=== PATIENT | male | born 1970 | race Caucasian/White ===

== ENCOUNTER 2019-02-12 07:32 | Outpatient (CLI) | payer OTHER, SELFPAY ==
[2019-02-12 08:06] LABS: Hematocrit 40.1 % (42.0-52.0); Hemoglobin 13.8 g/dL (14.0-18.0); Mean Corpuscular HGB Conc 34.4 g/dl (32-36); Mean Corpuscular Hemoglobin 29.1 pg (26-34); Mean Corpuscular Volume 84.4 fl (80-100); Mean Platelet Volume 9.4 fl (7.4-10.4); Platelet Count Result 236 k/mm3 (150-375); Red Blood Count 4.75 M/mm3 (4.6-6.20); Red Cell Distribution Width 12.5 % (11.5-14.5); White Blood Count 7.2 K/mm3 (4.5-10.0)
[2019-02-12 08:23] LABS: Alanine Aminotransferase 39 U/L (4-50); Albumin Level 4.4 g/dL (3.5-5.1); Alkaline Phosphatase 84 U/L (38-126); Aspartate Amino Transferase 30 U/L (17-59); Bilirubin,Total 0.4 mg/dL (0.2-1.3); Blood Urea Nitrogen 20 mg/dL (9-20); Calcium 9.3 mg/dL (8.4-10.2); Carbon Dioxide 26 mmol/L (22-30); Chloride 101 mmol/L (98-107); Cholesterol 221 mg/dL (0-200); Estimated Glomerular Filt Rate > 60; Glucose 119 mg/dL (75-110); HDL Direct 33 mg/dL; Potassium 4.9 mmol/L (3.4-5.0); Sodium 137 mmol/L (137-145); Triglycerides 292 mg/dL (<150)
[2019-02-12 08:34] LABS: LDL Cholesterol Direct 121 mg/dL
[2019-02-12 08:49] LABS: Prostate Specific Antigen 1.6 ng/mL (< OR = 4.0)
== END 2019-02-12 07:33 | disposition home or self-care (01) ==
LOC: ANHLAB 07:34
PROVIDERS: PCP Internal Medicine; Visit Provider Nurse Practitioner
DX: D72.829 Elevated white blood cell count, unspecified (principal); E29.1 Testicular hypofunction; E78.5 Hyperlipidemia, unspecified
CPT/HCPCS: 36415; 80053; 80061; 84153; 85027

== ENCOUNTER 2019-03-22 00:27 | Day surgery (SDC) | payer OTHER, SELFPAY ==
[2019-03-17 08:40] VITALS: BMI 33.8
[2019-03-22 10:04] VITALS: BP 128/94; PULSE 77; RESP 16; TEMP 36.3; O2SAT 97
[2019-03-22] MEDS: LACTATED RINGERS 1,000 ML 150 ML IV CONT (10:14)
--- NOTE | 2019-03-22 10:29 | WPDANESEPPF ---
Anes - Initial Pre Proc Eval Procedure: Operation Date: 03/22/19 11:15 Proposed Procedures p Screening Colonoscopy - Gerry Roth MD Date/Time: 03/22/19 10:29 Surgeon: Gerry Roth MD Pre Op Diagnosis: Neoplasm Screening Patient Data Age: 48 Gender: M Height: 5 ft 8 in Weight: 102.1 kg Last Vital Signs Temp 97.3 F L 03/22/19 10:04 Pulse 77 03/22/19 10:04 Resp 16 03/22/19 10:04 BP 128/94 H 03/22/19 10:04 Pulse Ox 97 03/22/19 10:04 Allergies Allergy/AdvReac Type Severity Reaction Status Date / Time iodine Allergy Intermediate HIVES Verified 03/22/19 10:03 gadobenic acid Allergy Hives Verified 03/22/19 10:03 [From contrast - MRI] iohexol Allergy Hives Verified 03/22/19 10:03 [From contrast - CT, X-RAY] Home Medications Medication Instructions Recorded Confirmed Type nabumetone 500 mg tablet 500 mg PO BID #30 tablet 01/18/19 03/22/19 Rx omeprazole 20 mg capsule,delayed 20 mg PO DAILY #30 cap 01/18/19 03/22/19 Rx release sertraline 100 mg tablet 100 mg PO DAILY 01/18/19 03/22/19 History simvastatin 40 mg tablet 40 mg PO DAILY #90 tablet 02/18/19 03/22/19 Rx Patient hx anesthesia problems: none Family hx anesthesia problems: none PMFSH Past Medical History Medical History (Updated 03/22/19 @ 10:29 by Yony House MD) Anxiety Arthritis of finger of left hand Depression with anxiety Hypogonadism in male MAGUI (obstructive sleep apnea) Tooth abscess Surgical History Surgical History History of facial surgery History of surgery on arm right arm surgery from laceration Family History Family History (Updated 02/18/19 @ 08:28 by Brenda Carey CMA) Father Cancer Other Heart disease Social History Social History (Updated 02/18/19 @ 08:29 by Brenda Carey CMA) Smoking status: Former smoker Smoking end date: 02/10/16 Alcohol intake: current Anes - Eval Final PreProcedure Day of Procedure 03/22/19 10:29 Patient weight: obese Heart: regular rate and rhythm Lungs: clear to auscultation Airway: Mallampati scale class II Neurological: alert and oriented Last oral intake: >/= 8 hours ASA classification: III Emergent: no Anesthetic plan: proceed Anesthesia type and monitoring: general GIVS and standard monitoring Informed Consent: The patient's anesthetic plan and its attendant risks and benefits were discussed with the patient/family/POA. Questions were solicited and answers provided to the satisfaction of the patient/family/POA.
--- NOTE | 2019-03-22 11:06 | PM.HPGS ---
History of Present Illness History of Present Illness Consent: Risks, benefits, and alternatives have been discussed and questions answered. Patient agrees to proceed with procedure. Chief complaint: Neoplasm Screening Narrative: Yair Samuel Jr. is a 48 year old male here for screening colonoscopy, never had one. Review of Systems Constitutional: Constitutional: Denies headache(s) and Denies weakness Eyes: Eyes: Denies blurry vision ENT: Reports Normal hearing present, Denies headache(s) and Denies neck pain Cardiovascular: Cardiovascular: Denies chest pain and Denies dyspnea Respiratory: Respiratory: Denies dyspnea Gastrointestinal: Gastrointestinal: Reports no additional gastrointestinal complaints Genitourinary: Genitourinary: Denies dysuria Musculoskeletal: Musculoskeletal: Denies neck pain Integumentary/Breasts: Skin/Breast: Denies dry skin Neurologic: Reports Normal hearing present, Denies headache(s) and Denies weakness Psychiatric: Psychiatric: Denies anxiety Endocrine: Endocrine: Denies change in body appearance Hematologic/Lymphatic: Hematologic/Lymphatic: Denies easy bleeding Allergic/Immunologic: Allergic/Immunologic: Denies urticaria PMFSH Past Medical History Medical History (Updated 03/22/19 @ 10:29 by Yony House MD) Anxiety Arthritis of finger of left hand Depression with anxiety Hypogonadism in male MAGUI (obstructive sleep apnea) Tooth abscess Surgical History Surgical History History of facial surgery History of surgery on arm right arm surgery from laceration Family History Family History (Updated 02/18/19 @ 08:28 by Brenda Carey CMA) Father Cancer Other Heart disease Social History Social History (Updated 02/18/19 @ 08:29 by Brenda Carey BOAT DISPATCHER) Smoking status: Former smoker Smoking end date: 02/10/16 Alcohol intake: current Meds Home Medications and Allergies Home Medications Medication Instructions Recorded Confirmed Type nabumetone 500 mg tablet 500 mg PO BID #30 tablet 01/18/19 03/22/19 Rx omeprazole 20 mg capsule,delayed 20 mg PO DAILY #30 cap 01/18/19 03/22/19 Rx release sertraline 100 mg tablet 100 mg PO DAILY 01/18/19 03/22/19 History simvastatin 40 mg tablet 40 mg PO DAILY #90 tablet 02/18/19 03/22/19 Rx Allergies Allergy/AdvReac Type Severity Reaction Status Date / Time iodine Allergy Intermediate HIVES Verified 03/22/19 10:03 gadobenic acid Allergy Hives Verified 03/22/19 10:03 [From contrast - MRI] iohexol Allergy Hives Verified 03/22/19 10:03 [From contrast - CT, X-RAY] Vital Signs Vital Signs - 24 hr 03/22/19 10:04 Temperature 97.3 F L Pulse Rate 77 Respiratory Rate 16 Blood Pressure 128/94 H Pulse Oximetry 97 Exam Const: General: comfortable and no acute distress HENMT: General nose exam: Normal nares present Eyes: General: appearance normal, both eyes and all related structures Neck: Neck: no JVD Resp: Auscultation: clear to auscultation bilaterally Cardio: Rate: regular rate Rhythm: regular rhythm GI: Inspection: non-distended GI Palp: Yes Soft to palpation Skin: General skin exam: normal color Neuro: General: gait normal Speech: normal speech Extrem: General: normal to inspection Psych: Mental Status: mental status grossly normal Assessment and Plan Assessment and plan (1) Screening for colon cancer: Code(s): Z12.11 - Encounter for screening for malignant neoplasm of colon Status: Acute Assessment and Plan: will proceed with colonoscopy (2) Hyperlipidemia: Qualifiers: Hyperlipidemia type: unspecified Qualified Code(s): E78.5 - Hyperlipidemia, unspecified Code(s): E78.5 - Hyperlipidemia, unspecified Status: Acute
[2019-03-22 11:27] VITALS: BP 117/66; PULSE 68; RESP 13; O2SAT 98
[2019-03-22 11:37] VITALS: BP 120/70; PULSE 64; RESP 12; O2SAT 98
[2019-03-22 11:47] VITALS: BP 112/70; PULSE 66; RESP 16; O2SAT 98
== END 2019-03-22 12:01 | disposition home or self-care (01) ==
PROVIDERS: PCP Internal Medicine; Visit Provider Internal Medicine Gastroenterology
PROC: 0DJD8ZZ Inspection of Lower Intestinal Tract, Via Natural or Artificial Opening Endoscopic (ICD-10-PCS; CPT 45378; principal; 2019-03-22 11:15)
DX: Z12.11 Encounter for screening for malignant neoplasm of colon (principal); K63.5 Polyp of colon; K57.30 Diverticulosis of large intestine without perforation or abscess without bleeding; G47.33 Obstructive sleep apnea (adult) (pediatric); F41.8 Other specified anxiety disorders; Z87.891 Personal history of nicotine dependence; E66.9 Obesity, unspecified; Z68.34 Body mass index [BMI] 34.0-34.9, adult
CPT/HCPCS: 45385; 88305; J7120

== ENCOUNTER 2020-06-15 09:11 | Outpatient (CLI) | payer OTHER, SELFPAY ==
[2020-06-15 09:51] LABS: Basophils Absolute Auto 0.1 K/mm3 (0.0-0.1); Basophils Percent Auto 0.6 % (0.2-1.2); Eosinophils Absolute Auto 0.1 K/mm3 (0-0.3); Eosinophils Percent Auto 1.2 % (0-4.4); Hematocrit 41.2 % (42.0-52.0); Hemoglobin 14.4 g/dL (14.0-18.0); Immature Granulocyte Absolute 0.02 K/mm3 (0.00-0.031); Immature Granulocyte Percent A 0.2 % (0-0.5); Lymphocytes Absolute Auto 2.58 K/mm3 (0.9-3.2); Lymphocytes Percent Auto 31.3 % (18.3-44.2); Mean Corpuscular Hemoglobin 29.2 pg (26-34); Mean Corpuscular Volume 83.6 fl (80-100); Mean Platelet Volume 9.1 fl (7.4-10.4); Monocytes Absolute Auto 0.6 K/mm3 (0.1-0.6); Monocytes Percent Auto 6.8 % (2.6-8.5); Neutrophils Absolute Auto 4.9 K/mm3 (1.3-6.7); Neutrophils Percent Auto 59.9 % (45.5-73.1); Platelet Count Result 270 k/mm3 (150-375); Red Blood Count 4.93 M/mm3 (4.6-6.20); Red Cell Distribution Width 12.6 % (11.5-14.5); White Blood Count 8.3 K/mm3 (4.5-10.0)
[2020-06-15 09:58] LABS: Alanine Aminotransferase 29 U/L (4-50); Albumin Level 4.8 g/dL (3.5-5.1); Alkaline Phosphatase 89 U/L (38-126); Anion Gap 7 mmol/L (8-16); Aspartate Amino Transferase 32 U/L (17-59); Bilirubin,Total 0.3 mg/dL (0.2-1.3); Blood Urea Nitrogen 15 mg/dL (9-20); Calcium 9.7 mg/dL (8.4-10.2); Carbon Dioxide 26 mmol/L (22-30); Chloride 106 mmol/L (98-107); Cholesterol 221 mg/dL (0-200); Estimated Glomerular Filt Rate > 60; Glucose 112 mg/dL (75-110); HDL Direct 45 mg/dL; Potassium 4.9 mmol/L (3.4-5.0); Sodium 139 mmol/L (137-145); Triglycerides 371 mg/dL (<150)
[2020-06-15 09:59] LABS: Hemoglobin A1C 6.1 % (<5.7)
[2020-06-15 10:10] LABS: LDL Cholesterol Direct 109 mg/dL
[2020-06-15 10:29] LABS: Prostate Specific Antigen 1.8 ng/mL (< OR = 4.0)
== END 2020-06-15 09:12 | disposition home or self-care (01) ==
PROVIDERS: PCP Internal Medicine; Visit Provider Nurse Practitioner
DX: R73.03 Prediabetes (principal); E78.5 Hyperlipidemia, unspecified; Z12.5 Encounter for screening for malignant neoplasm of prostate
CPT/HCPCS: 36415; 80053; 80061; 83036; 84153; 85025; G0103

== ENCOUNTER 2021-07-06 09:26 | Outpatient (CLI) | payer OTHER, SELFPAY ==
[2021-07-06 10:03] LABS: Basophils Absolute Auto 0.1 K/mm3 (0.0-0.1); Basophils Percent Auto 0.6 % (0.2-1.2); Eosinophils Absolute Auto 0.1 K/mm3 (0-0.3); Eosinophils Percent Auto 1.4 % (0-4.4); Hematocrit 42.5 % (42.0-52.0); Hemoglobin 14.4 g/dL (14.0-18.0); Immature Granulocyte Absolute 0.01 K/mm3 (0.00-0.031); Immature Granulocyte Percent A 0.1 % (0-0.5); Lymphocytes Absolute Auto 2.78 K/mm3 (0.9-3.2); Lymphocytes Percent Auto 34.4 % (18.3-44.2); Mean Corpuscular HGB Conc 33.9 g/dl (32-36); Mean Corpuscular Hemoglobin 29.6 pg (26-34); Mean Corpuscular Volume 87.3 fl (80-100); Mean Platelet Volume 9.6 fl (7.4-10.4); Monocytes Absolute Auto 0.6 K/mm3 (0.1-0.6); Monocytes Percent Auto 7.7 % (2.6-8.5); Neutrophils Absolute Auto 4.5 K/mm3 (1.3-6.7); Neutrophils Percent Auto 55.8 % (45.5-73.1); Platelet Count Result 280 k/mm3 (150-375); Red Blood Count 4.87 M/mm3 (4.6-6.20); Red Cell Distribution Width 12.5 % (11.5-14.5); White Blood Count 8.1 K/mm3 (4.5-10.0)
[2021-07-06 10:16] LABS: Alanine Aminotransferase 37 U/L (6-50); Albumin Level 4.5 g/dL (3.5-5.1); Alkaline Phosphatase 79 U/L (38-126); Anion Gap 4 mmol/L (8-16); Aspartate Amino Transferase 32 U/L (17-59); Bilirubin,Total 0.4 mg/dL (0.2-1.3); Blood Urea Nitrogen 18 mg/dL (9-20); Calcium 8.6 mg/dL (8.4-10.2); Carbon Dioxide 27 mmol/L (22-30); Chloride 107 mmol/L (98-107); Cholesterol 189 mg/dL (0-200); Estimated Glomerular Filt Rate > 60; Glucose 102 mg/dL (65-110); HDL Direct 31 mg/dL; Potassium 4.4 mmol/L (3.4-5.0); Sodium 138 mmol/L (137-145); Triglycerides 178 mg/dL (<150)
[2021-07-06 10:19] LABS: Hemoglobin A1C 5.9 % (<5.7)
[2021-07-06 10:27] LABS: LDL Cholesterol Direct 107 mg/dL
[2021-07-06 10:46] LABS: Prostate Specific Antigen 1.8 ng/mL (< OR = 4.0)
== END 2021-07-06 09:27 | disposition home or self-care (01) ==
LOC: ANHLAB 09:27
PROVIDERS: PCP Internal Medicine; Visit Provider Internal Medicine
DX: Z13.228 Encounter for screening for other metabolic disorders (principal); R73.03 Prediabetes; E78.5 Hyperlipidemia, unspecified; Z12.5 Encounter for screening for malignant neoplasm of prostate
CPT/HCPCS: 36415; 80053; 80061; 83036; 84153; 85025; G0103

== ENCOUNTER 2021-08-25 08:28 | Emergency (ER) | payer OTHER, SELFPAY ==
[2021-08-25 10:04] VITALS: BP 142/90; PULSE 76; RESP 18; TEMP 36.4; O2SAT 98
[2021-08-25] MEDS: FLUORESCEIN SOD 1 MG/STRIP LEFT EYE (10:44)
[2021-08-25] MEDS: TETRACAINE HCL 0.5% OPHTH SOLN 4 ML BTL 1 DROP LEFT EYE (10:44)
--- NOTE | 2021-08-25 11:12 | PC.NURSE ---
Patient report given to MONE Michaels. All questions answered and care of patient transferred.
--- NOTE | 2021-08-25 11:40 | ED.GENADULT ---
HPI - General Adult General Chief complaint: Eye Problems Stated complaint: L eye injury Time Seen by Provider: 08/25/21 10:12 History of Present Illness HPI narrative: 50-year-old male presented emerged department for evaluation of an injury to his left eye. 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 Patient did have some bleeding from the sclera. Patient states he does have a slight blurring of his vision but denies any significant changes. Visual acuity was performed. Patient does use corrective eyewear. Patient states that his tetanus is up-to-date. Related Data Allergies Allergy/AdvReac Type Severity Reaction Status Date / Time iodine Allergy Intermediate HIVES Verified 08/20/21 08:00 gadobenic acid Allergy Hives Verified 08/20/21 08:00 [From contrast - MRI] iohexol Allergy Hives Verified 08/20/21 08:00 [From contrast - CT, X-RAY] Review of Systems Review of Systems: CONSTITUTIONAL: Denies fever, chills, or sweats. EYES: See HPI ENT: Denies rhinorrhea, congestion, sore throat, or otalgia. CARDIOVASCULAR: Denies chest pain, palpitations, or edema. RESPIRATORY: Denies cough or dyspnea. GASTROINTESTINAL: Denies abdominal pain, nausea, vomiting, or diarrhea. GENITOURINARY: Denies dysuria or hematuria. SKIN: Denies rash or itching. MUSCULOSKELETAL: Denies back pain, joint pain, or myalgia. NEUROLOGIC: Denies headache, numbness, or weakness. [facility] Past Medical History Medical History Anxiety Arthritis of finger of left hand Depression with anxiety Hypogonadism in male MAGUI (obstructive sleep apnea) Tooth abscess Surgical History Surgical History History of facial surgery History of surgery on arm right arm surgery from laceration Family History Family History Father Cancer Other Heart disease Sibling H/O stentless aortic valve replacement Social History Social History (Updated 08/20/21 @ 08:04 by Brenda Bradley CMA) Smoking status: Current every day smoker Tobacco type: cigarettes Alcohol intake: current Alcohol use details: Pt drinks occasionally. Substance use: current Substance use type: marijuana Exam Narrative: APPEARANCE: Well appearing, no pain, no distress, well-nourished. HEAD: normocephalic, atraumatic. EYES: Normal fundus exam. No intraocular bleeding. Some fluorescein uptake the left lateral cornea. No flowing fluorescein to raise concern of a globe injury NOSE: Normal no drainage EARS:TMS clear with good light reflex. THROAT: Pharynx clear, no exudate. NECK: Supple. No adenopathy, no masses. NEURO: Alert. Cranial nerves II through XII intact. Good gait. Good coordination SKIN: Warm, dry. Normal Color PSYCHIATRIC: Normal affect/mood. Course Course Emergency Course: Patient was treated with erythromycin ointment and encouraged to have close follow-up with ophthalmology. All questions concerns were addressed. Vital Signs Vital signs: Vital Signs Temperature 97.6 F 08/25/21 10:04 Pulse Rate 76 08/25/21 10:04 Respiratory Rate 18 08/25/21 10:04 Blood Pressure 142/90 H 08/25/21 10:04 Pulse Oximetry 98 08/25/21 10:04 Oxygen Delivery Room Air 08/25/21 10:04 Temperature 97.6 F 08/25/21 10:04 Pulse Rate 76 08/25/21 10:04 Respiratory Rate 18 08/25/21 10:04 Blood Pressure 142/90 H 08/25/21 10:04 Pulse Oximetry 98 08/25/21 10:04 Oxygen Delivery Room Air 08/25/21 10:04 Medical Decision Making Vital Signs Vital Signs: Vital Signs Temperature 97.6 F 08/25/21 10:04 Pulse Rate 76 08/25/21 10:04 Respiratory Rate 18 08/25/21 10:04 Blood Pressure 142/90 H 08/25/21 10:04 Pulse Oximetry 98 08/25/21 10:04 Oxygen Delivery Room Air 08/25/21 10:04 Temperature 97.6 F 08/25/21 10:04 Pulse R
[2021-08-25] MEDS: ERYTHROMYCIN OPHTH OINTMENT 1 GM TUBE 1 APPLIC LEFT EYE (11:56)
== END 2021-08-25 12:00 | disposition home or self-care (01) ==
PROVIDERS: Emergency Provider Emergency Medicine; PCP Internal Medicine
DX: S05.92XA Unspecified injury of left eye and orbit, initial encounter (principal); H11.32 Conjunctival hemorrhage, left eye; M19.042 Primary osteoarthritis, left hand; G47.33 Obstructive sleep apnea (adult) (pediatric); F17.210 Nicotine dependence, cigarettes, uncomplicated; W22.8XXA Striking against or struck by other objects, initial encounter
CPT/HCPCS: 99283; A9270

== ENCOUNTER 2021-09-20 07:56 | Outpatient (CLI) | payer OTHER, SELFPAY ==
[2021-09-20 19:32] LABS: Cholesterol 192 mg/dL (0-200); HDL Direct 33 mg/dL; Triglycerides 223 mg/dL (<150)
[2021-09-20 19:33] LABS: Hemoglobin A1C 5.6 % (<5.7)
[2021-09-20 19:43] LABS: LDL Cholesterol Direct 111 mg/dL
== END 2021-09-20 07:57 | disposition home or self-care (01) ==
LOC: ANHGOSHLAB 07:57
PROVIDERS: PCP Internal Medicine; Visit Provider Nurse Practitioner
DX: R73.03 Prediabetes (principal); E78.5 Hyperlipidemia, unspecified
CPT/HCPCS: 36415; 80061; 83036

== ENCOUNTER 2022-04-03 16:04 | Outpatient (CLI) | payer OTHER, SELFPAY ==
[2022-04-03 20:30] LABS: Basophils Absolute Auto 0.1 K/mm3 (0.0-0.1); Basophils Percent Auto 0.7 % (0.2-1.2); Eosinophils Absolute Auto 0.1 K/mm3 (0-0.3); Hematocrit 40.5 % (42.0-52.0); Immature Granulocyte Absolute 0.02 K/mm3 (0.00-0.031); Immature Granulocyte Percent A 0.2 % (0-0.5); Lymphocytes Absolute Auto 3.68 K/mm3 (0.9-3.2); Lymphocytes Percent Auto 35.9 % (18.3-44.2); Mean Corpuscular HGB Conc 34.6 g/dl (32-36); Mean Corpuscular Hemoglobin 29.7 pg (26-34); Mean Corpuscular Volume 85.8 fl (80-100); Mean Platelet Volume 9.5 fl (7.4-10.4); Monocytes Absolute Auto 0.8 K/mm3 (0.1-0.6); Monocytes Percent Auto 7.4 % (2.6-8.5); Neutrophils Absolute Auto 5.6 K/mm3 (1.3-6.7); Neutrophils Percent Auto 54.8 % (45.5-73.1); Platelet Count Result 275 k/mm3 (150-375); Red Blood Count 4.72 M/mm3 (4.6-6.20); Red Cell Distribution Width 12.4 % (11.5-14.5); White Blood Count 10.3 K/mm3 (4.5-10.0)
[2022-04-03 21:24] LABS: Alanine Aminotransferase 38 U/L (6-50); Albumin Level 4.6 g/dL (3.5-5.1); Alkaline Phosphatase 82 U/L (38-126); Anion Gap 8 mmol/L (8-16); Aspartate Amino Transferase 64 U/L (17-59); Bilirubin,Total 0.5 mg/dL (0.2-1.3); Blood Urea Nitrogen 15 mg/dL (9-20); Calcium 8.9 mg/dL (8.4-10.2); Carbon Dioxide 28 mmol/L (22-30); Chloride 104 mmol/L (98-107); Estimated Glomerular Filt Rate > 60; Glucose 85 mg/dL (65-110); Magnesium 2.1 mg/dL (1.6-2.3); Potassium 4.3 mmol/L (3.4-5.0); Sodium 140 mmol/L (137-145)
== END 2022-04-03 16:05 | disposition home or self-care (01) ==
LOC: ANHGOSHLAB 16:05
PROVIDERS: PCP Internal Medicine; Visit Provider Nurse Practitioner
DX: R56.9 Unspecified convulsions (principal)
CPT/HCPCS: 36415; 80053; 83735; 84443; 85025

== ENCOUNTER 2022-04-11 15:13 | Outpatient (CLI) | payer OTHER, SELFPAY ==
--- NOTE | ~2022-04-11 | MR_ITS ---
EXAMINATION: MR brain/brain stem wo con DATE: 04/11/2022 16:05 INDICATION: Seizure activity. TECHNIQUE: Magnetic resonance imaging (MRI) of the brain and brainstem was performed without intraven ous contrast. COMPARISON: Head CT 05/14/2007 FINDINGS: There is no intracranial hemorrhage, acute infarction, or abnormal intracranial mass lesion . There are areas of chronic encephalomalacia involving the frontal lobes bilaterally, left worse jem n right. There is no intracranial hemorrhage, acute infarction, or abnormal intracranial mass lesion. The ventricles are normal in size. The paranasal sinuses are clear. The orbits are normal. The masto id air cells are normal. IMPRESSION: 1. Chronic encephalomalacia involving the frontal lobes, left worse than right. Reviewed, dictated and finalized at location A. [facility] CUTTER
== END 2022-04-11 15:14 | disposition home or self-care (01) ==
PROVIDERS: PCP Internal Medicine; Visit Provider Nurse Practitioner
DX: R56.9 Unspecified convulsions (principal); G93.89 Other specified disorders of brain
CPT/HCPCS: 70551

== ENCOUNTER 2022-05-01 15:22 | Outpatient (CLI) | payer OTHER, SELFPAY ==
[2022-05-04 15:48] LABS: Levetiracetam Keppra <2.0 mcg/mL (6.0-46.0)
== END 2022-05-01 15:23 | disposition home or self-care (01) ==
LOC: ANHGOSHLAB 15:24
PROVIDERS: PCP Internal Medicine; Visit Provider Nurse Practitioner
DX: R56.9 Unspecified convulsions (principal)
CPT/HCPCS: 36415; 80177

== ENCOUNTER 2023-01-17 07:10 | Outpatient (CLI) | payer OTHER, SELFPAY ==
[2023-01-17 07:21] LABS: Basophils Absolute Auto 0.1 K/mm3 (0.0-0.1); Basophils Percent Auto 0.5 % (0.2-1.2); Eosinophils Absolute Auto 0.2 K/mm3 (0-0.3); Eosinophils Percent Auto 1.6 % (0-4.4); Immature Granulocyte Absolute 0.02 K/mm3 (0.00-0.031); Immature Granulocyte Percent A 0.2 % (0-0.5); Lymphocytes Absolute Auto 3.08 K/mm3 (0.9-3.2); Lymphocytes Percent Auto 28.9 % (18.3-44.2); Mean Corpuscular HGB Conc 34.1 g/dl (32-36); Mean Corpuscular Hemoglobin 29.5 pg (26-34); Mean Corpuscular Volume 86.5 fl (80-100); Mean Platelet Volume 8.8 fl (7.4-10.4); Monocytes Absolute Auto 0.6 K/mm3 (0.1-0.6); Monocytes Percent Auto 5.5 % (2.6-8.5); Neutrophils Absolute Auto 6.7 K/mm3 (1.3-6.7); Neutrophils Percent Auto 63.3 % (45.5-73.1); Platelet Count Result 248 k/mm3 (150-375); Red Blood Count 4.74 M/mm3 (4.6-6.20); Red Cell Distribution Width 12.8 % (11.5-14.5); White Blood Count 10.7 K/mm3 (4.5-10.0)
[2023-01-17 07:40] LABS: Alanine Aminotransferase 40 U/L (6-50); Albumin Level 4.4 g/dL (3.5-5.1); Alkaline Phosphatase 80 U/L (38-126); Anion Gap 8 mmol/L (8-16); Aspartate Amino Transferase 34 U/L (17-59); Bilirubin,Total 0.5 mg/dL (0.2-1.3); Blood Urea Nitrogen 16 mg/dL (9-20); Calcium 9.3 mg/dL (8.4-10.2); Carbon Dioxide 25 mmol/L (22-30); Chloride 107 mmol/L (98-107); Cholesterol 201 mg/dL (0-200); Estimated Glomerular Filt Rate > 60; Glucose 100 mg/dL (65-110); HDL Direct 36 mg/dL; Potassium 4.7 mmol/L (3.4-5.0); Sodium 140 mmol/L (137-145); Triglycerides 123 mg/dL (<150)
[2023-01-17 07:50] LABS: LDL Cholesterol Direct 124 mg/dL
[2023-01-17 12:49] LABS: Hemoglobin A1C 5.8 % (<5.7)
== END 2023-01-17 07:11 | disposition home or self-care (01) ==
LOC: ANHLAB 07:11
PROVIDERS: PCP Internal Medicine; Visit Provider Clinical Nurse Specialist
DX: R73.9 Hyperglycemia, unspecified (principal); Z13.228 Encounter for screening for other metabolic disorders; E78.5 Hyperlipidemia, unspecified; Z12.5 Encounter for screening for malignant neoplasm of prostate
CPT/HCPCS: 36415; 80053; 80061; 83036; 84153; 85025; G0103

== ENCOUNTER 2023-07-28 07:36 | Outpatient (CLI) | payer OTHER, SELFPAY ==
[2023-07-28 08:06] LABS: Basophils Absolute Auto 0.1 K/mm3 (0.0-0.1); Basophils Percent Auto 0.8 % (0.2-1.2); Eosinophils Absolute Auto 0.1 K/mm3 (0-0.3); Eosinophils Percent Auto 1.8 % (0-4.4); Hemoglobin 13.7 g/dL (14.0-18.0); Immature Granulocyte Absolute 0.02 K/mm3 (0.00-0.031); Immature Granulocyte Percent A 0.3 % (0-0.5); Lymphocytes Absolute Auto 2.23 K/mm3 (0.9-3.2); Lymphocytes Percent Auto 34.3 % (18.3-44.2); Mean Corpuscular HGB Conc 34.3 g/dl (32-36); Mean Corpuscular Hemoglobin 29.9 pg (26-34); Mean Corpuscular Volume 87.3 fl (80-100); Mean Platelet Volume 9.2 fl (7.4-10.4); Monocytes Absolute Auto 0.5 K/mm3 (0.1-0.6); Monocytes Percent Auto 8.2 % (2.6-8.5); Neutrophils Absolute Auto 3.6 K/mm3 (1.3-6.7); Neutrophils Percent Auto 54.6 % (45.5-73.1); Platelet Count Result 229 k/mm3 (150-375); Red Blood Count 4.58 M/mm3 (4.6-6.20); Red Cell Distribution Width 12.9 % (11.5-14.5); White Blood Count 6.5 K/mm3 (4.5-10.0)
[2023-07-28 08:21] LABS: Alanine Aminotransferase 43 U/L (6-50); Albumin Level 4.3 g/dL (3.5-5.1); Alkaline Phosphatase 75 U/L (38-126); Anion Gap 7 mmol/L (4-12); Aspartate Amino Transferase 41 U/L (17-59); Bilirubin,Total 0.5 mg/dL (0.2-1.3); Blood Urea Nitrogen 15 mg/dL (9-20); Calcium 8.9 mg/dL (8.4-10.2); Carbon Dioxide 26 mmol/L (22-30); Chloride 107 mmol/L (98-107); Cholesterol 282 mg/dL (0-200); Estimated Glomerular Filt Rate > 60; Glucose 126 mg/dL (65-110); HDL Direct 55 mg/dL; Potassium 4.3 mmol/L (3.4-5.0); Sodium 140 mmol/L (137-145); Triglycerides 280 mg/dL (<150)
[2023-07-28 08:33] LABS: LDL Cholesterol Direct 156 mg/dL
[2023-07-28 08:44] LABS: Hemoglobin A1C 5.9 % (<5.7)
[2023-07-28 08:50] LABS: Prostate Specific Antigen 2.9 ng/mL (< OR = 4.0)
== END 2023-07-28 07:37 | disposition home or self-care (01) ==
LOC: ANHLAB 07:37
PROVIDERS: PCP Internal Medicine; Visit Provider Nurse Practitioner
DX: R73.03 Prediabetes (principal); E78.5 Hyperlipidemia, unspecified; Z12.5 Encounter for screening for malignant neoplasm of prostate
CPT/HCPCS: 36415; 80053; 80061; 83036; 84153; 85025; G0103

== ENCOUNTER 2024-02-25 16:43 | Emergency (ER) | payer OTHER, SELFPAY ==
[2024-02-25 16:54] VITALS: BP 103/61; PULSE 86; RESP 16; TEMP 37.4; O2SAT 99
--- NOTE | 2024-02-25 17:00 | ED.URI ---
HPI - URI/Sore Throat General Chief Complaint: Ear Stated Complaint: EARACHE Time Seen by Provider: 02/25/24 16:53 Source: patient and RN notes reviewed Mode of arrival: ambulatory Limitations: no limitations History of Present Illness HPI Narrative: Patient presents today complaining of a 3-4 day history of cold symptoms to include slight cough, nasal congestion, headache, rhinorrhea. Reports right ear pain and muffling since this morning. Denies known fever. He has been taking Tylenol and ibuprofen with some mild relief. Related Data Allergies Allergy/AdvReac Type Severity Reaction Status Date / Time iodine Allergy Intermediate HIVES Verified 07/30/23 14:26 gadobenic acid (From Allergy Hives Verified 07/30/23 14:26 contrast - MRI) iohexol (From contrast - CT, Allergy Hives Verified 07/30/23 14:26 X-RAY) Review of Systems Review of Systems: CONSTITUTIONAL: Denies body aches, fever, chills, or sweats. EYES: Denies visual changes, redness, or discharge. ENT: Denies sore throat. + right ear pain, rhinorrhea, congestion CARDIOVASCULAR: Denies chest pain, palpitations, or edema. RESPIRATORY: Denies dyspnea.+ cough GASTROINTESTINAL: Denies abdominal pain, nausea, vomiting, or diarrhea. GENITOURINARY: Denies dysuria or hematuria. SKIN: Denies rash, itching, or wounds. MUSCULOSKELETAL: Denies back pain, joint pain, or myalgia. NEUROLOGIC: Denies numbness, tingling, or weakness.+ headache PSYCH: Denies depression or anxiety. [facility] Past Medical History Medical History Tobacco abuse Anxiety MAGUI (obstructive sleep apnea) Arthritis of finger of left hand Depression with anxiety Tooth abscess Hypogonadism in male Surgical History Surgical History History of surgery on arm right arm surgery from laceration History of facial surgery Family History Family History Father Cancer Other Heart disease Sibling H/O stentless aortic valve replacement Social History Social History Social History: caffeine-coffee Years smoked: 30 Smoking status: Current every day smoker Tobacco type: cigarettes Alcohol intake: current Alcohol use details: Pt drinks occasionally. Substance use: current Substance use type: marijuana Other substance usage details: rarely Lack of Transportation: No Lack of Food: Sometimes True Current Housing: I Have Housing Concerned About Future Housing: No Difficulty Paying Gas/Electric Bills: No Difficulty Paying for Meds: No Currently Unemployed: No Education: Bachelor's Degree Difficulty w/ Childcare or Family Care: No Comments Reviewed Exam Narrative: GENERAL: Well-appearing, well-nourished, and in no acute distress. HEAD: Normocephalic, atraumatic. EYES: EOMI. No redness or drainage. Conjunctivae normal. ENT: Mucous membranes pink and moist. Nares congested. No rhinorrhea. Left TM normal. Right TM erythematous and bulging. Bilateral ear canals are dry and flaking. Throat normal. Uvula midline. NECK: Normal AROM. Supple. No lymphadenopathy. CHEST: No respiratory distress. Clear to auscultation. HEART: Regular rate and rhythm. No murmur appreciated. EXTREMITIES: Normal range of motion. No edema. SKIN: Warm, dry, no rash. Capillary refill normal. Normal skin turgor. NEURO: No focal deficits. Alert and oriented x3. Gait steady. PSYCH: Normal affect. No signs of depression or anxiety. Course Course Level of Care: Express Care Visit Vital Signs Vital signs: Vital Signs Temperature 99.3 F 02/25/24 16:54 Pulse Rate 86 02/25/24 16:54 Respiratory Rate 16 02/25/24 16:54 Blood Pressure 103/61 02/25/24 16:54 Pulse Oximetry 99 02/25/24 16:54 Temperature 99.3 F 02/25/24 16:54 Pulse Rate 86 02/25/24 16:54 Respiratory Rate 16 02/25/24 16:54 Blood Pressure 103/61 02/25/24 16:54 Pulse Oximetry 99 02/25/24 16:54 Reviewed MDM - URI/Sore Throat MDM Narrative Medical decision making narrative: Patient will be treated with amoxicillin for right otitis media. Remainder of symptoms are likely viral in etiology. Discussed [id number] medication use and duration of illness. Anticipatory guidance given. Differential Diagnosis Differential diagnosis: Likely upper respiratory infection, otitis media and viral infection Critical Care Time Critical Care Time Critical Care Time: No Discharge Plan Discharge Clinical Impression: Acute right otitis media Upper respiratory infection Qualifiers: URI type: unspecified URI Qualified Code(s): J06.9 - Acute upper respiratory infection, unspecified Patient Disposition: Home, Self-Care Condition: Stable Instructions: Antibiotic Form, Ear Infection (ED), Upper Respiratory Infection (DC) Additional Instructions: Please take the amoxicillin for your ear infection. The remainder of your symptoms are likely due to a viral illness, which is not treated with antibiotics. Virus symptoms can last for up to 7-10days. Take Tylenol or ibuprofen for pain or fever. Rest and stay hydrated. Follow up with your PCP in days if your ear symptoms are not improving. Go to the ER immediately if you develop shortness of breath, difficulty swallowing, or any other concerning symptoms. Patient Language: Khmer Prescriptions: New amoxicillin 875 mg tablet 875 mg PO Q12H 7 Days Qty: 14 0RF No Action levetiracetam [Keppra] 500 mg tablet 750 mg PO Q12H 30 Days Qty: 90 1RF sertraline 100 mg tablet See Rx Instructions .ROUTE .COMPLEX Qty: 135 1RF Dose Instruction: TAKE 1 TABLET BY MOUTH EVERY DAY Rx Instructions: TAKE 1.5 TABLETS BY MOUTH EVERY DAY atorvastatin 40 mg tablet 40 mg PO QHS Qty: 90 1RF Zepbound 15 mg/0.5 mL pen injector 15 mg subcut WEEKLY Qty: 6 1RF Follow-up/Referrals: Jeff Pathak DO [Primary Care Provider] - Time of Disposition: 17:02
== END 2024-02-25 17:05 | disposition home or self-care (01) ==
PROVIDERS: Emergency Provider Nurse Practitioner; PCP Internal Medicine
DX: H66.91 Otitis media, unspecified, right ear (principal); J06.9 Acute upper respiratory infection, unspecified
CPT/HCPCS: 99213; G0463

== ENCOUNTER 2024-03-21 08:11 | Outpatient (CLI) | payer OTHER, SELFPAY ==
--- OUTSIDE RECORDS SUMMARY | 2024-03-21 08:17 | XMS_ITS | Clinical Summary ---
Author Organization [facility] Address [address] [place] [address] Care Team Providers Care Form Grader Operator Name Role Phone Unavailable Primary Care Provider Unavailabl e Source Comments [facility],non-owned Affiliates and Associated Physician Practices is amultiple site organization consisting of ambulatory clinics and hospital sitesin [place], [place], [place] and [place]. This disclosure is being madepursuant to the Care Everywhere program and may not contain all information available regarding this patient. Last updated 17.[facility] Immunizations Name Administration Dates Next Due TDAP (7yrs+) 08/20/2016 Social History Tobacco Use Types Packs/Day Years Used Date Smoking Tobacco: Never Assessed Sex and Gender Information Value Date Recorded Sex Assigned at Not on file Gender Identity Not on file Sexual Orientation Not on file Plan of Treatment Health Maintenance Due Date Last Done Comments COLOGUARD (AGES 45-75) - COL ON CA SCREENING 1968 COLON MONITORING 1968 COLONOSCOPY - COLON CA SCREENING 1968 CT COLONOGRAPHY - COLON CA SCREENING 1968 Colorectal Cancer Screening 1968 FIT - COLON CA SCREENING 1968 FLEX SIG - COLON CA SCREENING 1968 LIPID TESTING 1968 HIV SCREENING 10/15/1983 HEPATITIS C SCREENING 10/10/1986 HEPATITIS B VACCINE (1 of 3 - 19+ 3-dose series) 10/15/1987 PNEUMOCOCCAL VACCINE 50+ (1 of 1 - PCV) 2018 ZOSTER VACCINE (1 of 2) 2018 COVID-19 VACCINE (2023-2 5 season) 2023 INFLUENZA VACCINE (#1) 2023 DEPRESSION SCREENING 02/10/2024 DTAP/TDAP/TD VACCINES (2 - T d or Tdap) 08/20/2026 08/20/2016 HIB VACCINE Aged Out No longer eligi ble based on patient's age to complete this topic HPV VACCINE Aged Out No longer eligi ble based on patient's age to complete this topic MENINGOCOCCAL (Group B) VACCINE Aged Out No longer eligible based on patient's age to complete this topic MENINGOCOCCAL VACCINE Aged Out No melvin stacey eligible based on patient's age to complete this topic PNEUMOCOCCAL VACCINE Aged Out No long er eligible based on patient's age to complete this topic
--- OUTSIDE RECORDS SUMMARY | 2024-03-21 08:17 | XMS_ITS | Patient Health Summary ---
Author Organization [facility] Address [address] [place] [address] Care Team Providers Care Billing Manager Name Role Phone Unavailable Primary Care Provider Unavailabl e Note from [facility],non-owned Affiliates and Associated Physician Practices is amultiple site organization consisting of ambulatory clinics and hospital sitesin [place], [place], [place] and [place]. This disclosure is being madepursuant to the Care Everywhere program and may not contain all information available regarding this patient. Last updated 17.[facility] Immunizations * TDAP (7yrs+)(Given 08/20/2016) Social History Tobacco Use Types Packs/Day Years Used Date Smoking Tobacco: Never Assessed Sex and Gender Information Value Date Recorded Sex Assigned at Not on file Gender Identity Not on file Sexual Orientation Not on file
--- OUTSIDE RECORDS SUMMARY | 2024-03-21 08:17 | XMS_ITS | Clinical Summary ---
Author Organization [facility] Address [address] [place] [address] Care Team Providers Care Clinical Documentation Spec Name Role Phone Unavailable Primary Care Provider Unavailabl e Immunizations Name Administration Dates Next Due MODERNA COVID-19 (12+) MRNA, LNP-S, PF, 100 MCG/ 0.5 ML DOSE 04/12/2020,03/15/2020 Social History Tobacco Use Types Packs/Day Years Used Date Smoking Tobacco: Never Assessed Sex and Gender Information Value Date Recorded Sex Assigned at Not on file Legal Sex Male 7:42 PM CDT Gender Identity Not on file Sexual Orientation Not on file Plan of Treatment Health Maintenance Due Date Last Done Comments Colorectal Cancer Screening Colonoscopy (10 Years) 1968 Annual Physical 10/15/1971 Hepatitis C 1986 DTaP, Tdap and Td Vaccines ( 1 - Tdap) 10/15/1987 Hepatitis B Vaccines (1 of 3 - 19+ 3-dose series) 10/15/1987 Zoster Vaccines (1 of 2) 2018 COVID-19 Vaccine ( - 2023-2 5 season) 2023 04/12/2020, 03/15/2020 Influenza Adult (#1) 2023 Meningococcal Vaccine Aged Out 11/23/2015 No melvin stacey eligible based on patient's age to complete this topic Meningococcal B Vaccine Aged Out No l onger eligible based on patient's age to complete this topic Pneumococcal Vaccine: Pediatrics (0 to 5 Years) and At-Risk Patients (6 to 64 Years) Aged Out No longer eligible b ased on patient's age to complete this topic RSV Immunizations Under 20 Months Aged Out No longer eligible b ased on patient's age to complete this topic
--- OUTSIDE RECORDS SUMMARY | 2024-03-21 08:17 | XMS_ITS | Continuity of Care Document ---
Author Organization [facility] Address [address] [place] [address] Phone Care Team Providers Care Director Of Perioperative Services Name Role Phone Lr OD, Anthony Unavailable Unavailable Advance Directives Directive Yes / No Effective Date File Name No Information Encounters Encounter Description Practice Location Reason(s) For Visit Diagnoses Date Provider Providers Copied on Encounter [facility], [address], [place], [place], [id number], [place] tel:[phone] [facility] No Information [place]- 0-200 0 Lr OD Anthony. [address] , [address], [place], [address], [place]. tel:[phone] Family History Family Member Type Diagnosis Age At Onset No Information Payers Payer name Insurance type Covered democrat ID Authoriza tion(s) No Information Social History [...]
--- OUTSIDE RECORDS SUMMARY | 2024-03-21 08:17 | XMS_ITS | Referral Summary ---
Author Organization [facility] Address [address] [place] [address] Care Team Providers Care Office Clinician Name Role Phone Unavailable Primary Care Provider Unavailabl e Source Comments [facility],non-owned Affiliates and Associated Physician Practices is amultiple site organization consisting of ambulatory clinics and hospital sitesin [place], [place], [place] and [place]. This disclosure is being madepursuant to the Care Everywhere program and may not contain all information available regarding this patient. Last updated 17.[facility] [employer] Immunizations Name Administration Dates Next Due TDAP (7yrs+) 08/20/2016 Social History Tobacco Use Types Packs/Day Years Used Date Smoking Tobacco: Never Assessed Sex and Gender Information Value Date Recorded Sex Assigned at Not on file Gender Identity Not on file Sexual Orientation Not on file Plan of Treatment Not on file
[2024-03-21 13:01] LABS: Basophils Percent Auto 0.7 % (0.2-1.2); Eosinophils Absolute Auto 0.1 K/mm3 (0-0.3); Hematocrit 43.4 % (42.0-52.0); Hemoglobin 14.2 g/dL (14.0-18.0); Immature Granulocyte Absolute 0.01 K/mm3 (0.00-0.031); Immature Granulocyte Percent A 0.2 % (0-0.5); Lymphocytes Absolute Auto 1.89 K/mm3 (0.9-3.2); Lymphocytes Percent Auto 31.1 % (18.3-44.2); Mean Corpuscular HGB Conc 32.7 g/dl (32-36); Mean Corpuscular Hemoglobin 28.6 pg (26-34); Mean Corpuscular Volume 87.5 fl (80-100); Mean Platelet Volume 9.6 fl (7.4-10.4); Monocytes Absolute Auto 0.4 K/mm3 (0.1-0.6); Monocytes Percent Auto 6.8 % (2.6-8.5); Neutrophils Absolute Auto 3.7 K/mm3 (1.3-6.7); Neutrophils Percent Auto 60.2 % (45.5-73.1); Platelet Count Result 240 k/mm3 (150-375); Red Blood Count 4.96 M/mm3 (4.6-6.20); Red Cell Distribution Width 12.2 % (11.5-14.5); White Blood Count 6.1 K/mm3 (4.5-10.0)
[2024-03-21 14:54] LABS: Alanine Aminotransferase 20 U/L (6-50); Albumin Level 4.5 g/dL (3.5-5.1); Alkaline Phosphatase 85 U/L (38-126); Anion Gap 10 mmol/L (4-12); Aspartate Amino Transferase 41 U/L (17-59); Bilirubin,Total 0.5 mg/dL (0.2-1.3); Blood Urea Nitrogen 18 mg/dL (9-20); Calcium 9.5 mg/dL (8.4-10.2); Carbon Dioxide 27 mmol/L (22-30); Chloride 104 mmol/L (98-107); Cholesterol 214 mg/dL (0-200); Estimated Glomerular Filt Rate > 60; Glucose 74 mg/dL (65-110); HDL Direct 51 mg/dL; Sodium 141 mmol/L (137-145); Triglycerides 67 mg/dL (<150)
[2024-03-21 15:05] LABS: LDL Cholesterol Direct 134 mg/dL
[2024-03-21 15:56] LABS: Hemoglobin A1C 5.5 % (<5.7)
[2024-03-21 15:59] LABS: Folic Acid 9.6 ng/mL (2.76->20)
== END 2024-03-21 08:12 | disposition home or self-care (01) ==
LOC: ANHGOSHLAB 08:12
PROVIDERS: PCP Internal Medicine; Visit Provider Internal Medicine
DX: E78.5 Hyperlipidemia, unspecified (principal); R73.9 Hyperglycemia, unspecified; D64.9 Anemia, unspecified; E88.810 Metabolic syndrome; E66.09 Other obesity due to excess calories; Z68.31 Body mass index [BMI] 31.0-31.9, adult
CPT/HCPCS: 36415; 80053; 80061; 82172; 82607; 82728; 82746; 83036; 85025

== ENCOUNTER 2024-03-29 08:46 | Outpatient (CLI) | payer OTHER, SELFPAY ==
--- OUTSIDE RECORDS SUMMARY | 2024-03-29 08:50 | XMS_ITS | Clinical Summary ---
Author Organization [facility] Address [facility] [place] [address] Care Team Providers Care Space Officer Name Role Phone Unavailable Primary Care Provider [...]
--- OUTSIDE RECORDS SUMMARY | 2024-03-29 08:50 | XMS_ITS | Continuity of Care Document ---
Author Organization [facility] Address [address] [place] [address] Phone Care Team Providers Care Bleach Boiler Puller Name Role Phone Lr OD, Anthony Unavailable Unavailable Advance Directives Directive Yes / No Effective Date File Name No Information Encounters Encounter Description Practice Location Reason(s) For Visit Diagnoses Date Provider Providers Copied on Encounter [facility], [address], [place], [place], [id number], [place] tel:[phone] [facility] No Information [place]- [phone] Lr OD Anthony. [address] , [address], [place], [address], [place]. tel:[phone] Family History Family Member Type Diagnosis Age [...]
--- OUTSIDE RECORDS SUMMARY | 2024-03-29 08:50 | XMS_ITS | Clinical Summary ---
Author Organization [facility] [employer] Address [address] [place] [address] Care Team Providers Care Windshield Technician Name Role Phone Unavailable Primary Care Provider Unavailabl e Source Comments [facility] [employer],non-owned Affiliates and Associated Physician Practices is amultiple site organization consisting of ambulatory clinics and hospital sitesin [place], [place], [place] and [place]. This disclosure is being madepursuant to the Care Everywhere program and may not contain all information available regarding this patient. Last updated 17.[facility] [employer] Immunizations Name Administration Dates Next Due TDAP [...]
--- OUTSIDE RECORDS SUMMARY | 2024-03-29 08:50 | XMS_ITS | Patient Health Summary ---
Author Organization [facility] Address [address] [place] [address] Care Team Providers Care Tire Classifier Name Role Phone Unavailable Primary Care Provider Unavailabl e Note from [facility],non-owned Affiliates and Associated Physician Practices is amultiple site organization consisting of ambulatory clinics and hospital sitesin [place], [place], [place] and [place]. This disclosure is being madepursuant to the Care Everywhere program and may not contain all information available regarding this patient. Last updated 17.[facility] Immunizations * TDAP (7yrs+)(Given 08/20/2016) Social History Tobacco Use Types Packs/Day Years Used Date Smoking Tobacco: Never Assessed Sex and Gender Information Value Date Recorded Sex Assigned at Not on file Gender Identity Not on file Sexual Orientation Not on file
--- OUTSIDE RECORDS SUMMARY | 2024-03-29 08:50 | XMS_ITS | Referral Summary ---
Author Organization [facility] Address [address] [place] [address] Care Team Providers Care Human Service Specialist Name Role Phone Unavailable Primary Care Provider Unavailabl e Source Comments [facility],non-owned Affiliates and Associated Physician Practices is amultiple site organization consisting of ambulatory clinics and [place]in [place] and [place]. This disclosure is being madepursuant to the Care Everywhere program and may not contain all information available regarding this patient. Last updated 17.[facility] [employer] Immunizations Name Administration Dates Next Due TDAP (7yrs+) 08/20/2016 Social History Tobacco Use Types Packs/Day Years Used Date Smoking Tobacco: Never Assessed Sex and Gender Information Value Date Recorded Sex Assigned at Not on file Gender Identity Not on file Sexual Orientation Not on file Plan of Treatment Not on file
[2024-03-29 18:24] LABS: Free T3 3.55 pg/mL (2.71-6.16)
[2024-03-31 01:40] LABS: LH 2.9 mIU/mL (1.5-9.3)
== END 2024-03-29 08:47 | disposition home or self-care (01) ==
LOC: ANHGOSHLAB 08:46
PROVIDERS: PCP Internal Medicine; Visit Provider Internal Medicine
DX: R53.83 Other fatigue (principal); R68.82 Decreased libido; N52.9 Male erectile dysfunction, unspecified
CPT/HCPCS: 36415; 83002; 84402; 84403; 84481

== ENCOUNTER 2024-06-07 08:04 | Outpatient (CLI) | payer OTHER, SELFPAY ==
--- OUTSIDE RECORDS SUMMARY | 2024-06-07 08:12 | XMS_ITS | Clinical Summary ---
Author Organization [facility] Address [address] [place] [address] Care Team Providers Care Pepper Cutter Name Role Phone Unavailable Primary Care Provider Unavailabl e Source Comments [facility],non-owned Affiliates and Associated Physician Practices is amultiple site organization consisting of ambulatory clinics and hospital sitesin [place], [place], [place] and [place]. This disclosure is being madepursuant to the Care Everywhere program and may not contain all information available regarding this patient. 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 Gender Identity Not on file Sexual Orientation [...] VACCINE (1 of 2) 2018 COVID-19 VACCINE ( - 2023-2 5 season) 2023 DEPRESSION SCREENING 02/10/2024 INFLUENZA VACCINE (Season Ended) 2024 DTAP/TDAP/TD VACCINES (2 - T d or Tdap) 08/20/2026 08/20/2016 HIB VACCINE Aged Out No longer eligi ble based on patient's age to complete this topic HPV VACCINE Aged Out No longer eligi ble based on patient's age to complete this topic MENINGOCOCCAL (Group B) VACC INE SHARED DECISION-MAKING Aged Out No longer eligibl e based on patient's age to complete this topic MENINGOCOCCAL GROUPS A/C/Y/W VACCINE Aged Out No longer eligible b ased on patient's age to complete this topic Insurance [facility] [place] Address: [address]
--- OUTSIDE RECORDS SUMMARY | 2024-06-07 08:12 | XMS_ITS ---
Author Organization Unknown Medications Medication Instructions Effective Dates (start - stop) Status atorvastatin 40 MG Oral Tablet 2023-02-09 T00:00:00Z - Completed sertraline 100 MG Oral Tablet 2023-04-29 00:00:00Z - Completed - - Compl eted {11 (varenicline 0.5 MG Oral Tablet) / 42 (varenicline 1 MG Oral Tablet) } Pack - Completed levetiracetam 750 MG Oral Tablet T00:00:00Z - Completed levetiracetam 500 MG Oral Tablet 00:00:00Z - Completed simvastatin 40 MG Oral Tablet 2023-01-07 00:00:00Z - Completed levetiracetam 1000 MG Oral Tablet 2023-0400:00:00Z - Completed - - Compl eted - - Compl eted - - Compl eted - - Compl eted sertraline 100 MG Oral Tablet 2023-07-28 00:00:00Z - Completed levetiracetam 1000 MG Oral Tablet 2023-0500:00:00Z - Completed - - Compl eted - - Compl eted levetiracetam 1000 MG Oral Tablet 2023-0700:00:00Z - Completed atorvastatin 40 MG Oral Tablet 2023-04-29 T00:00:00Z - Completed levetiracetam 1000 MG Oral Tablet 2023-0300:00:00Z - Completed - - Compl eted sertraline 100 MG Oral Tablet 2022-09-22 00:00:00Z - Completed sertraline 100 MG Oral Tablet 2022-11-27 00:00:00Z - Completed - - Compl eted simvastatin 40 MG Oral Tablet 2022-09-22 00:00:00Z - Completed Patient Care team information Name Category Status Period Participants - - Proposed period not known -
--- OUTSIDE RECORDS SUMMARY | 2024-06-07 08:12 | XMS_ITS | Clinical Summary ---
Author Organization [facility] Address [id number] [place] [address] Care Team Providers Care Director Pharmacy Services Name Role Phone Unavailable Primary Care Provider Unavailabl e Immunizations Immunization Administration Dates Next Due MODERNA COVID-19 (12+) [...] of 3 - 19+ 3-dose series) 10/15/1987 Pneumococcal Vaccine: 50+ Years (1 of 1 - PCV) 2018 Zoster Vaccines (1 of 2) 2018 COVID-19 Vaccine (3 - 2023-2 5 season) 2023 04/12/2020, 03/15/2020 Meningococcal Vaccine Aged Out 11/23/2015 No melvin stacey eligible based on patient's age to complete this topic Meningococcal B Vaccine Aged Out No l onger eligible based on patient's age to complete this topic RSV Immunizations Under 20 Months Aged Out No longer eligible b ased on patient's age to complete this topic
--- OUTSIDE RECORDS SUMMARY | 2024-06-07 08:12 | XMS_ITS | Continuity of Care Document ---
Author Organization [facility] Address [address] [place] [address] Phone Care Team Providers Care Doughnut Machine Operator Name Role Phone Lr OD, Anthony Unavailable Unavailable Advance Directives Directive Yes / No Effective Date File Name No Information Encounters Encounter Description Practice Location Reason(s) For Visit Diagnoses Date Provider Providers Copied on Encounter [facility], [address], [place], [place], [id number], [place] tel:[phone] [facility] No Information [place]- 0-200 0 Lr OD Anthony. [address] , [address], [place], [address], [place]. tel:[phone] Family History Family Member Type Diagnosis Age At Onset No Information Payers Payer name Insurance type Covered libertarian ID Authoriza tion(s) No Information Social History [...]
[2024-06-07 14:45] LABS: Free T3 4.98 pg/mL (2.71-6.16); Free T4 Free Thyroxine 0.72 ng/dL (0.78-2.19)
== END 2024-06-07 08:05 | disposition home or self-care (01) ==
LOC: ANHGOSHLAB 08:05
PROVIDERS: PCP Internal Medicine; Visit Provider Internal Medicine
DX: R68.82 Decreased libido (principal); R53.83 Other fatigue; N52.9 Male erectile dysfunction, unspecified; R53.82 Chronic fatigue, unspecified; R97.20 Elevated prostate specific antigen [PSA]
CPT/HCPCS: 36415; 84153; 84439; 84443; 84481

== ENCOUNTER 2024-07-14 12:04 | Emergency (ER) | payer OTHER, SELFPAY ==
[2024-07-14 12:36] VITALS: BP 142/80; PULSE 73; RESP 16; TEMP 36.2; O2SAT 100
--- NOTE | 2024-07-14 12:49 | ED.EYEPROB ---
HPI - Eye Problem General Chief complaint: Eye Problems Stated complaint: rt eye irritation,sinus drainage Time Seen by Provider: 07/14/24 12:58 Source: patient, RN notes reviewed and old records reviewed Mode of arrival: ambulatory Limitations: no limitations History of Present Illness HPI Narrative: 53-year-old male presents to the [facility] with right eye redness, tearing. States he woke up this morning and the eye was red. States that he had fallen asleep with his contact lens in. Denies any blurry vision or change in vision. Denies any trauma. Onset (ago): hour(s) Eye Symptoms: redness Related Data Allergies Allergy/AdvReac Type Severity Reaction Status Date / Time iodine Allergy Intermediate HIVES Verified 07/14/24 13:03 gadobenic acid (From Allergy Hives Verified 07/14/24 13:03 contrast - MRI) iohexol (From contrast - CT, Allergy Hives Verified 07/14/24 13:03 X-RAY) Review of Systems Review of Systems: All systems reviewed & are unremarkable except as noted in HPI and below Constitutional: Constitutional: Reports no additional constitutional complaints Eyes: Eyes: Reports as per HPI and Reports irritation ENT: Reports system reviewed and no additional complaints, except as documented Musculoskeletal: Musculoskeletal: Reports no additional musculoskeletal complaints Integumentary/Breasts: Skin/Breast: Reports system reviewed and no additional complaints, except as docu PMFSH Past Medical History Medical History Erectile dysfunction Tobacco abuse Anxiety MAGUI (obstructive sleep apnea) Arthritis of finger of left hand Depression with anxiety Tooth abscess Hypogonadism in male Surgical History Surgical History History of surgery on arm right arm surgery from laceration History of facial surgery Family History Family History Father Cancer Other Heart disease Sibling H/O stentless aortic valve replacement Social History Social History Social History: caffeine-coffee Years smoked: 30 Smoking status: Current every day smoker Tobacco type: cigarettes Alcohol intake: current Alcohol use details: Pt drinks occasionally. Substance use: current Substance use type: marijuana Other substance usage details: rarely Do You Feel Safe in your Home?: Yes Lack of Transportation: No Lack of Food: Sometimes True Current Housing: I Have Housing Concerned About Future Housing: No Difficulty Paying Gas/Electric Bills: No Difficulty Paying for Meds: No Currently Unemployed: No Education: Bachelor's Degree Difficulty w/ Childcare or Family Care: No Comments At the time of my signature, I reviewed and agree with the nursing past medical, surgical, social, and family history. There is no relevant family history pertinent to the patient complaint. Exam Const: General: cooperative, healthy appearing, comfortable, no acute distress, well developed, alert and well nourished Nutritional Appearance: well nourished Orientation/consciousness: patient oriented x3 Limitations: no limitations HENMT: Head: normal to inspection Ears: hearing grossly normal bilaterally, external ears normal, TM's normal bilaterally, EAC's normal, mastoids normal and no periauricular adenopathy Mouth: Yes Normal oral and palatal mucosa present, Yes lip normal, Yes tongue normal and Yes moist mucous membranes Throat: posterior oropharynx normal Eyes: General: appearance normal, both eyes and all related structures Alignment and Position: alignment normal Periorbital: periorbital findings abnormal right periorbital swelling; no tenderness, no erythema, no ecchymosis and no crepitus Conjunctivae: conjunctival abnormality right conjunctival injection circumcorneal Cornea: corneas normal and fluorescein used Neck: Neck: normal visual inspection, full ROM, no lymphadenopathy and no meningeal signs Chest: Chest palpation & inspection: normal inspection of the chest Resp: Effort & Inspection: normal respiratory effort and able to speak in complete sentences Cardio: Rate: regular rate Skin: General skin exam: normal color and no rashes or lesions noted Neuro: General: patient oriented x3, gait normal, moves all extremities and no meningeal signs Cognition (Neuro): normal cognition Speech: normal speech Gait exam (Neuro): Normal gait present Extrem: General: normal to inspection, full ROM, capillary refill normal and normal gait Psych: Appearance: grossly normal and well kempt Mental Status: mental status grossly normal Speech and movement: Normal speech and movement present and Clear speech present Affect: normal affect Attitude: cooperative Course Course Level of Care: Express Care Visit Vital Signs Vital signs: Vital Signs Temperature 97.1 F L 07/14/24 12:36 Pulse Rate 73 07/14/24 12:36 Respiratory Rate 16 07/14/24 12:36 Blood Pressure 142/80 H 07/14/24 12:36 Pulse Oximetry 100 07/14/24 12:36 Temperature 97.1 F L 07/14/24 12:36 Pulse Rate 73 07/14/24 12:36 Respiratory Rate 16 07/14/24 12:36 Blood Pressure 142/80 H 07/14/24 12:36 Pulse Oximetry 100 07/14/24 12:36 Reviewed MDM - Eye Problem MDM Narrative Medical decision making narrative: Patient sitting in exam room. Patient is nontoxic, vitals are stable. Visual acuity is 20 30 left 20 30 right Patient's fluorescein stain exam without abrasion or ulceration. I most likely conjunctivitis from sleeping with contact lenses in. Information for eye doctors given Patient encouraged to follow-up with primary care provider as well as Ophthalmology Patient appropriate for outpatient treatment with close follow-up Discharge instructions reviewed with patient, as well as provided in writing per nursing staff. The instructions also include specific and strict return/GO TO THE ER as well as f/u information. All questions have been answered, and the patient deny any further questions with discharge and discharge plan. Some parts of this dictation were generated by voice recognition software and may contain typographical and/or grammatical inaccuracies. Differential Diagnosis Differential diagnosis: Likely corneal abrasion, conjunctivitis, acute iritis, hyphema, periorbital cellulitis, glaucoma, corneal ulcer and ruptured globe Critical Care Time Critical Care Time Critical Care Time: No Discharge Plan Discharge Clinical Impression: Conjunctivitis Patient Disposition: Home Condition: Stable Instructions: Antibiotic Form, Conjunctivitis (ED) Additional Instructions: Apply a cool, damp compress to your affected eye. Be sure to use a clean cloth each time to avoid spreading the infection. Gently clean your eyes with wet cotton balls or pads to remove crusty buildup or irritating discharge. Stop wearing contact lenses until the condition clears up. Use eye drops as prescribed Maintain good hygiene and only touch your eyes with freshly washed hands. You should follow-up with an eye doctor within the next 72 hours Sandi: Arturo- [phone] [facility] [phone] [place] [phone] Fabian: [place] [phone] or [phone] [facility] [phone] [facility] [phone] [facility] [phone] [facility] Ophthalmology- [phone] Patient Language: Tajik Prescriptions: New ciprofloxacin HCl 0.3 % drops See Rx Instructions EACH EYE .COMPLEX Qty: 2.5 0RF Rx Instructions: put 1-2 drps in affected eye(s) every 2hr up to 8 times/day x2days; then 4 times/day x5days No Action levetiracetam [Keppra] 500 mg tablet 750 mg PO Q12H 30 Days Qty: 90 1RF Zepbound 7.5 mg/0.5 mL pen injector 7.5 mg subcut WEEKLY Qty: 2 0RF Rx Instructions: weeks 5-8 tadalafil [Cialis] 20 mg tablet 20 mg PO DAILY PRN (Reason: sexual activity) Qty: 30 0RF Rx Instructions: administer approximately 30min before sexual activity; do not use more than 1 dose per 24hrs testosterone cypionate [Depo-Testosterone] 200 mg/mL oil 140 mg IM WEEKLY Qty: 10 2RF Zepbound 5 mg/0.5 mL pen injector 5 mg subcut WEEKLY Qty: 2 1RF Follow-up/Referrals: Jeff Pathak DO [Primary Care Provider] - Stand Alone Forms: Work/School Release IP Time of Disposition: 13:19
== END 2024-07-14 13:25 | disposition home or self-care (01) ==
PROVIDERS: Emergency Provider Nurse Practitioner; PCP Internal Medicine
DX: H10.9 Unspecified conjunctivitis (principal); F17.210 Nicotine dependence, cigarettes, uncomplicated
CPT/HCPCS: 99213; G0463

== ENCOUNTER 2024-11-01 13:02 | Outpatient (CLI) | payer OTHER, SELFPAY ==
--- OUTSIDE RECORDS SUMMARY | 1999-07-20 06:00 | XMS_ITS | Continuity of Care Document ---
Author Organization [facility] Address [address] [place] [address] Phone Care Team Providers Care Gum Cook Name Role Phone Lr OD, Anthony Unavailable Unavailable Advance Directives Directive Yes / No Effective Date File Name No Information Encounters Encounter Description Practice Location Reason(s) For Visit Diagnoses Date Provider Providers Copied on Encounter [facility], [address], [place], [place], [id number], [place] tel:[phone] [facility] No Information [place]- 0-200 0 Lr OD Anthony. [address] , [address], [place], [address], [place]. tel:[phone] Family History Family Member Type Diagnosis Age At Onset No Information Payers Payer name Insurance type Covered republican ID Authoriza tion(s) No Information Social History Type Description Quantity Date Captured Comments Sex Male Smoking Status No Information Chief Complaint And Reason For Visit No Information Reason For Referral Reason For Referral No Information History Of Present Illness Encounter Date Complaint History Of Prese nt Illness No Information Functional Status Date Functional Assessmen t No Information Instructions Date Instruction Additional Infor mation No Information Assessments Type Assessment Date No Information Patient Care Teams Name Effective Dates (start - stop) Status Members No Information
--- OUTSIDE RECORDS SUMMARY | 2024-11-01 13:11 | XMS_ITS | Clinical Summary ---
Author Organization [facility] Address [address] [place] [address] Care Team Providers Care Arrt Technologist Name Role Phone Unavailable Primary Care Provider Unavailabl e Source Comments [facility],non-owned Affiliates and Associated Physician Practices is amultiple site organization consisting of ambulatory clinics and hospital sitesin [place], [place], [place] and [place]. This disclosure is being madepursuant to the Care Everywhere program and may not contain all information available regarding this patient. 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 Gender Identity Not on file Sexual Orientation [...] 2018 ZOSTER VACCINE (1 of 2) 2018 DEPRESSION SCREENING 02/10/2024 COVID-19 VACCINE ( - 2023-2 5 season) 2024 INFLUENZA VACCINE (#1) 2024 DTAP/TDAP/TD VACCINES (2 - T d [...] age to complete this topic Insurance [employer] Member Subscriber Plan / Payer (Ef fective for All Dates) Name:Yair Waggoner Member ID:Not on file Relation to Subscriber:Spouse Name:LUKE WAGGONER Subscriber ID:[id number] Date of :1967 (Home) Address: [address] [place] [address] Payer ID:Not on file Type:[facility] Address: [address]
[2024-11-01 20:04] LABS: Prostate Specific Antigen 3.6 ng/mL (< OR = 4.0)
== END 2024-11-01 13:03 | disposition home or self-care (01) ==
LOC: ANHGOSHLAB 13:03
PROVIDERS: PCP Internal Medicine; Visit Provider Internal Medicine
DX: Z12.5 Encounter for screening for malignant neoplasm of prostate (principal); R97.20 Elevated prostate specific antigen [PSA]; Z79.890 Hormone replacement therapy
CPT/HCPCS: 36415; 84153